=== PATIENT | male | born 1990 | race Hispanic/Latino ===

== ENCOUNTER 2018-11-28 12:21 | Emergency (ER) | payer BC ==
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
== END 2018-11-28 14:12 | disposition home or self-care (01) ==
LOC: SCSER 12:21
DX: S43.002A Unspecified subluxation of left shoulder joint, initial encounter (principal); V00.311A Fall from snowboard, initial encounter; Y93.23 Activity, snow (alpine) (downhill) skiing, snowboarding, sledding, tobogganing and snow tubing

== ENCOUNTER 2019-04-22 07:38 | Outpatient (CLI) | payer BC ==
--- NOTE | 2019-04-22 10:38 | MRI ---
MRI LEFT SHOULDER WITHOUT CONTRAST: Date: 04/22/19 HISTORY: M75.42 impingement syndrome of left shoulder. COMPARISON: Shoulder radiographs dated 11/28/18. FINDINGS: Biceps Tendon: Moderate extraarticular biceps tenosynovitis. Mild intraarticular tendinosis. Labrum: No displaced labral tear. Rotator Cuff: There is a high grade hidden interstitial tear of the footprint of the supraspinatus t endon measuring 1.0 cm in transverse dimension without definite articular or bursal surface extension . Lack of subacromial/subdeltoid bursa effusion corroborates with lack of complete bursal extension. This involves approximately 70-80% of the thickness of the footprint. Mild tendinosis of supraspinatu s and infraspinatus tendons. Bones: Type I acromion. Normal glenoid version. Muscles: Muscle signal and bulk is normal. IMPRESSION: High grade 70-80% hidden interstitial tear of the footprint of the mid 1.0 cm supraspinatus tendon wi thout definite articular bursal surface extension. POS: [facility]
== END 2019-04-22 07:39 | disposition home or self-care (01) ==
LOC: BICMRI 07:38
PROVIDERS: ATTEND Family Medicine
DX: M75.42 Impingement syndrome of left shoulder (principal); M75.102 Unspecified rotator cuff tear or rupture of left shoulder, not specified as traumatic

== ENCOUNTER 2020-08-04 20:34 | Emergency (ER) | payer BC ==
[~2020-08-04 20:34] MED LIST: Iopamidol-370 76% 500 ML 1 ML ONE
[2020-08-04] MEDS ORDERED: Fentanyl 100 MCG/2 ML VIAL ONE (20:54)
[2020-08-04] MEDS ORDERED: Boostrix 0.5 ML VIAL ONE (20:54)
[2020-08-04 21:12] LABS: #Basophils 0.1 thou/uL (0.0-0.2); #Eosinphils 0.3 thou/uL (0.0-0.7); #Lymphocytes 3.3 thou/uL (1.20-3.40); #Monocytes 0.7 thou/uL (0.11-0.59); #Neutrophils 4.4 thou/uL (1.40-6.50); %Basophils 0.7 % (0.0-1.0); %Eosinophils 3.3 % (0.0-10.0); %Monocytes 7.6 % (0.0-10.0); %Neutrophils 50.4 % (42.0-75.0); Mean Corpuscular HGB CONC 33.6 g/dL (32.0-36.0); Mean Corpuscular Hemoglobin 29.3 pg (27.0-31.0); Mean Corpuscular Volume 87.3 fL (78.0-98.0); Mean Platelet Volume 8.4 fL (7.4-10.4); Platelet Count 252 thou/uL (130-400); RBC Distribution Width 11.5 % (11.5-14.5); Red Blood Cell (RBC) Count 5.45 mill/uL (4.70-6.10); White Blood Cell (WBC) Count 8.7 thou/uL (4.8-10.8)
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
[2020-08-04 21:35] LABS: ALT (SGPT) 42 U/L (8-55); AST (SGOT) 60 U/L (5-34); Albumin 4.3 g/dL (3.5-5.0); Alkaline Phosphatase 67 U/L (40-110); Anion Gap 18 mmol/L (10-20); BUN (Urea Nitrogen) 16 mg/dL (8.9-20.6); Bilirubin, Total 0.4 mg/dL (0.2-1.2); Calc. Creatinine Clearance 0 mL/min (70-130); Calcium 9.1 mg/dL (7.8-10.44); Carbon Dioxide 19 mmol/L (22-29); Chloride 104 mmol/L (98-107); Estimated GFR-MDRD 82; Globulin 3.4 g/dL (2.4-3.5); Glucose 111 mg/dL (70-105); Lipase 12 U/L (8-78); Protein, Total 7.7 g/dL (6.0-8.3); Sodium 137 mmol/L (136-145)
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
[2020-08-04] MEDS ORDERED: Ketorolac Tromethamine 30 MG/ML VIAL ONE (21:41)
[2020-08-04] MEDS ORDERED: Morphine 4 MG/ML VIAL ONE ×2 (21:42→22:34)
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
[2020-08-04] MEDS ORDERED: Acetaminophen 500 MG TAB ONE (21:55)
[2020-08-04 22:14] LABS: Bacteria/HPF None Seen HPF (None Seen); Bilirubin Negative (Negative); Blood, Urine Negative (Negative); Clarity Clear (Clear); Glucose, Urine (Dipstick) Normal (Negative); Ketone, Urine 10 mg/dL (Negative); Leukocyte 25 Leu/uL (Negative); Nitrite Negative (Negative); Protein, Urine (Dipstick) 20 mg/dL (Neg-Trace); RBC/HPF 0-3 HPF (0-3); Specific Gravity, Urine 1.048 (1.002-1.036); Squamous Epithelial 0-3 HPF (0-3); Urobilinogen Normal mg/dL (Less than 2); pH, Urine 6.5 (5.0-9.0)
[2020-08-04] MEDS ORDERED: Ondansetron ODT 8 MG TAB ONE (23:19)
== END 2020-08-04 23:17 | disposition home or self-care (01) ==
LOC: ERS 20:34
DX: S06.9X1A Unspecified intracranial injury with loss of consciousness of 30 minutes or less, initial encounter (principal); S22.41XA Multiple fractures of ribs, right side, initial encounter for closed fracture; S62.630A Displaced fracture of distal phalanx of right index finger, initial encounter for closed fracture; S60.021A Contusion of right index finger without damage to nail, initial encounter; S80.211A Abrasion, right knee, initial encounter; S40.811A Abrasion of right upper arm, initial encounter; M54.6 Pain in thoracic spine; V29.9XXA Motorcycle rider (driver) (passenger) injured in unspecified traffic accident, initial encounter
CPT/HCPCS: 36415; 70450; 71260; 72125; 74177; 80053; 81003; 81015; 83605; 83690; 85025; 86850; 86900; 86901; 90471; 90715; 94799; 96374; 96375; 96376; J1885; J2270; J3010; Q0162; Q9967